=== PATIENT | male | born 1970 | race Caucasian/White ===

== ENCOUNTER 2024-03-15 10:37 | Inpatient (IN) | payer OTHER ==
[2024-03-15 11:31] LABS: INR 1.01 (0.83-1.09); PROTHROMBIN TIME (PATIENT) 11.6 SEC (9.7-13.0)
[2024-03-15 11:40] LABS: BASO % 0.5 % (0-2.0); EOS % 0.6 % (0-4.5); HEMATOCRIT 44.8 % (35.4-49); LYMPH % 24.4 % (8-40); MCH 28.5 pg (25.7-33.7); MCHC 33.5 g/dl (32.0-35.9); MEAN CELL VOLUME 85.1 fl (80-96); MEAN PLT VOLUME 8.9 fl (7.5-11.1); MONO % 6.2 % (3.8-10.2); NEUT % 68.3 % (42.8-82.8); PLATELET COUNT 322 10^3/uL (134-434); RBC 5.26 M/mm3 (4.00-5.60); RDW 14.1 % (11.9-15.9); WHITE BLOOD COUNT 8.1 K/mm3 (4.0-10.0)
[2024-03-15] MEDS: SODIUM CHLORIDE 1,000 ML IV SCH (11:40)
[2024-03-15 11:42] LABS: POTASSIUM 4.2 mmol/L (3.5-5.1)
[2024-03-15 11:43] LABS: CALCIUM 9.1 mg/dL (8.5-10.1)
[2024-03-15 11:44] LABS: ALBUMIN 3.8 g/dl (3.4-5.0)
[2024-03-15 11:45] LABS: BLOOD UREA NITROGEN 11.9 mg/dL (7-18)
[2024-03-15 11:47] LABS: CREATININE 0.7 mg/dL (0.55-1.3)
[2024-03-15 11:49] LABS: TOT PROT 7.7 g/dl (6.4-8.2)
[2024-03-15 11:50] LABS: BILIRUBIN,TOTAL 0.6 mg/dL (0.2-1)
[2024-03-15 11:59] LABS: URINE APPEARANCE CLEAR; URINE BILIRUBIN NEGATIVE (NEGATIVE); URINE COLOR YELLOW; URINE GLUCOSE (UA) NEGATIVE (NEGATIVE); URINE KETONE NEGATIVE (NEGATIVE); URINE LEUK ESTERASE NEGATIVE (NEGATIVE); URINE NITRITE NEGATIVE (NEGATIVE); URINE PROTEIN NEGATIVE (NEGATIVE); URINE UROBILINOGEN 0.2 mg/dL (0.2-1.0)
[2024-03-15] MEDS ORDERED: predniSONE 20 MG TABLET (UD) ONE (14:21)
[2024-03-15] MEDS ORDERED: predniSONE 10 MG TABLET (UD) ONE (14:22)
[2024-03-15] MEDS ORDERED: ACETAMINOPHEN 500 MG TABLET (FP) ONE (14:38)
[2024-03-15] MEDS ORDERED: KETOROLAC TROMETHAMINE 15 MG/ML VIAL ONE (16:08)
[2024-03-15 16:12] VITALS: BMI 31.1
[2024-03-15] MEDS: hydrALAZINE HCL 20 MG/ML VIAL IVPUSH ONE (16:45)
[2024-03-15] MEDS: ATORVASTATIN CA 40 MG TABLET (FP) PO SCH (21:44)
[2024-03-15] MEDS: HEPARIN NA (PORCINE) 5,000 UNITS/ML 1ML VIAL SQ SCH (21:44)
[2024-03-15] MEDS: METOPROLOL TARTRATE 5 MG/5 ML VIAL IVPUSH PRN (22:21)
[2024-03-16 07:15] LABS: BASO % 0.4 % (0-2.0); EOS % 0.7 % (0-4.5); HEMATOCRIT 43.5 % (35.4-49); LYMPH % 25.8 % (8-40); MCH 29.1 pg (25.7-33.7); MCHC 34.4 g/dl (32.0-35.9); MEAN CELL VOLUME 84.5 fl (80-96); MEAN PLT VOLUME 8.9 fl (7.5-11.1); MONO % 7.3 % (3.8-10.2); NEUT % 65.8 % (42.8-82.8); PLATELET COUNT 311 10^3/uL (134-434); RBC 5.15 M/mm3 (4.00-5.60); RDW 14.1 % (11.9-15.9); WHITE BLOOD COUNT 8.1 K/mm3 (4.0-10.0)
[2024-03-16 07:32] LABS: POTASSIUM 3.4 mmol/L (3.5-5.1)
[2024-03-16 07:43] LABS: CALCIUM 8.9 mg/dL (8.5-10.1)
[2024-03-16 07:46] LABS: ALBUMIN 3.5 g/dl (3.4-5.0); BLOOD UREA NITROGEN 13.1 mg/dL (7-18)
[2024-03-16 07:47] LABS: CREATININE 0.7 mg/dL (0.55-1.3)
[2024-03-16 07:48] LABS: BILIRUBIN,TOTAL 0.7 mg/dL (0.2-1); TOT PROT 7.1 g/dl (6.4-8.2)
[2024-03-16] MEDS: hydrALAZINE HCL 20 MG/ML VIAL IM PRN (08:10)
[2024-03-16] MEDS: amLODIPine BESYLATE 10 MG TABLET (FP) PO SCH (08:10)
[2024-03-16] MEDS: ASPIRIN COATED 81 MG TABLET.EC PO SCH (09:39)
[2024-03-16] MEDS: LOSARTAN POTASSIUM 50 MG TABLET PO SCH (09:39)
[2024-03-16] MEDS: POTASSIUM CHLORIDE ORAL LIQUID 20 MEQ/15 ML PO ONE (09:40)
[2024-03-18 10:47] VITALS: RESP 18
[2024-03-18 14:43] VITALS: BP 154/93; PULSE 72; TEMP 97
== END 2024-03-18 17:16 | disposition home or self-care (01) | DRG 45 ==
LOC: JER 10:37 → JERBED 12:00 → J4W 15:29
PROVIDERS: ADMIT Family Medicine; ATTEND Family Medicine
DX: I63.9 Cerebral infarction, unspecified (principal); E78.5 Hyperlipidemia, unspecified; F10.90 Alcohol use, unspecified, uncomplicated; R27.0 Ataxia, unspecified; R29.810 Facial weakness; I10 Essential (primary) hypertension
CPT/HCPCS: 36415; 70450-TC; 70496-TC; 70498-TC; 70551-TC; 80053; 80061; 81003; 82550; 82962; 83036; 84443; 84484; 85025; 85610; 85730; 86850; 86900; 86901; 93005; 93010; 93306-TC; 93880-TC; 97116-GP; 97161-GP; 99285-25; J1644; Q9967